=== PATIENT | female | born 1980 ===

== ENCOUNTER 2017-05-30 16:50 | Emergency (ER) | payer MEDICAID, OTHER ==
[2017-05-30] MEDS ORDERED: NS 1,000 ML IV ONE ×2 (17:30→18:02)
[2017-05-30] MEDS ORDERED: ONDANSETRON 4 MG/2 ML VIAL IVP ONE (17:30)
--- NOTE | 2017-05-30 17:30 | EDPHY ---
H & P Stated Complaint: Pt. with fever last noc,n/v/d x2 days.pain to left side Time Seen by Provider: 05/30/17 16:59 HPI/ROS: Chief Complaint: Flank pain, nausea, vomiting HPI: 37-year-old woman's been having left-sided flank pain for the last 7 days. She has had nausea vomiting since yesterday. Some subjective fevers or chills. Several days ago started with some diarrhea which has since resolved. Has not had a bowel movement in several days. Last menstrual period was 3 weeks ago. Does not believe she is . Denies sexual activity. She has never been in the past. No abdominal surgeries. There are no aggravating or alleviating factors. Pain is constant at an 8/10. She took Tylenol p.m. Last night but vomited it immediately. Has had several episodes of vomiting today. No coffee grounds or blood in her vomit. No no dark tarry stools. ROS: 10 point Review of Systems is negative except as noted in the HPI. PMH: Denies Social History: Positive smoking, occasional alcohol, no recreational drug use Family History: non-contributory Physical Exam: Gen: Awake, Alert, No Distress HEENT: Nose: no rhinorrhea Eyes: PERRLA, EOMI Mouth: Moist mucosa Neck: Supple, no JVD Chest: nontender, lungs clear to auscultation Heart: S1, S2 normal, no murmur Abd: Soft, moderate epigastric tenderness with mild left upper quadrant tenderness, no right upper or lower abdominal tenderness, pelvis is nontender, no guarding Back: Moderate left CVA tenderness, no midline tenderness Ext: no edema, non-tender Skin: no rash Neuro: CN II-XII intact, Sensation grossly intact, Strength 5/5 in bilateral upper and lower extremities - Personal History LMP (Females 10-55): 8-14 Days Ago Current Tetanus Diphtheria and Acellular Pertussis (TDAP): Yes - Medical/Surgical History Hx Asthma: No Hx Chronic Respiratory Disease: No Hx Diabetes: No Hx Cardiac Disease: No Hx Renal Disease: No Hx Cirrhosis: No Hx Alcoholism: No Hx HIV/AIDS: No Hx Splenectomy or Spleen Trauma: No Other PMH: Med hx-etoh. Surg-rt ankle - Social History Smoking Status: Light smoker Constitutional: Initial Vital Signs Temperature (C) 37.9 C 05/30/17 16:57 Heart Rate 122 H 05/30/17 16:57 Respiratory Rate 16 05/30/17 16:57 Blood Pressure 118/69 05/30/17 16:57 O2 Sat (%) 95 05/30/17 16:57 O2 Delivery Mode Room Air Allergies/Adverse Reactions: No Known Allergies Allergy (Verified 05/30/17 16:56) Home Medications: Medication Instructions Recorded NK [No Known Home Meds] 05/30/17 Medical Decision Making - Diagnostics Imaging Results: Imaging Impressions Abdomen/Pelvis CT 05/30/17 18:11 Impression: 1. While there is no nephroureterolithiasis or obstructive uropathy, there is relative left nephromegaly with some left perinephric inflammation, suggesting an underlying pyelonephritis. 2. Mild urinary bladder wall thickening, suggestive of a mild cystitis. 3. Grade II spondylolisthesis at L5-S1, with an accompanying spondylolysis. Attention: This CT examination is specifically designed to evaluate patients who are clinically suspected of having acute obstructive uropathy. This examination does not use radiographic contrast, and as such, provides only a limited evaluation of the abdomen, pelvis, and retroperitoneum. If there is further clinical suspicion for pathological conditions other than obstructive uropathy, a complete CT evaluation of the abdomen and pelvis utilizing intravenous, oral, and rectal contrast should be considered. Findings were discussed with Lorenzo Gotti MD at 18:54, on 05/30/2017. He indicated that her urinalysis was positive for white blood cells and hematuria. ED Course/Re-evaluation: 37-year-old woman presenting with left-sided flank pain, tachycardia and fever. IV is been placed. Bloods have been drawn. Urinalysis performed. Patient has an elevated white count at 19. She meets SIRS criteria. Lactic acid and blood cultures have been ordered. I have ordered 2 g of ceftriaxone IV. 1834 patient meets sepsis criteria with a lactic acid 2.5. She is currently getting her 2nd L fluid. Remains tachycardic. Given her hematuria and pain I have ordered a CT scan to rule out infected kidney stone. 1899 CT scan is positive for pyelonephritis but there is no kidney stone. Patient's heart rate is down to 112. She is feeling improved. I have explained to her that she will require admission. She is requesting being transferred to [facility] as she and her mom do not have access to a car and they will be walking when she is discharged in her mother will be walking to visit her. I have paged the hospitalist at [facility]. 192 patient has been accepted to [facility] by Dr. Andrei Oliva. I have completed the EMTALA. - Data Points Laboratory Results: Laboratory Results 05/30/17 17:20 05/30/17 17:20 05/30/17 05/30/17 05/30/17 17:55 17:50 17:20 WBC RBC Hgb Hct MCV MCH MCHC RDW Plt Count MPV Neut % (Auto) Lymph % (Auto) [place] % (Auto) Eos % (Auto) Baso % (Auto) Nucleat RBC Rel Count Absolute Neuts (auto) Absolute Lymphs (auto) Absolute Monos (auto) Absolute Eos (auto) Absolute Basos (auto) Absolute Nucleated RBC Immature Gran % Immature Gran # VBG Lactic Acid 2.4 mmol/L H mmol/L (0.7-2.1) Sodium Potassium Chloride Carbon Dioxide Anion Gap BUN Creatinine Estimated GFR Glucose Calcium Total Bilirubin AST ALT Alkaline Phosphatase Total Protein Albumin Lipase Beta HCG, Qual NEGATIVE Urine Color YELLOW Urine Appearance HAZY Urine pH 6.0 (5.0-7.5) Ur Specific Elizabeth 1.010 (1.002-1.030) Urine Protein 2+ H (NEGATIVE) Urine Ketones 1+ H (NEGATIVE) Urine Blood 3+ H (NEGATIVE) Urine Nitrate POSITIVE H (NEGATIVE) Urine Bilirubin NEGATIVE (NEGATIVE) Urine Urobilinogen 2.0 EU H EU (0.2-1.0) Ur Leukocyte Esterase 1+ H (NEGATIVE) Urine RBC 10-15 /hpf H /hpf (0-3) Urine WBC 25-50 /hpf H /hpf (0-3) Ur Epithelial Cells 1+ /lpf /lpf (NONE-1+) Urine Bacteria 3+ /hpf H /hpf (NONE SEEN) Granular Casts OCCASIONAL /lpf /lpf (0-1) Urine Glucose NEGATIVE (NEGATIVE) 05/30/17 05/30/17 17:20 17:20 WBC 19.46 10^3/uL H 10^3/uL (3.80-9.50) RBC 4.76 10^6/uL 10^6/uL (4.18-5.33) Hgb 14.2 g/dL g/dL (12.6-16.3) Hct 40.8 % % (38.0-47.0) MCV 85.7 fL fL (81.5-99.8) MCH 29.8 pg pg (27.9-34.1) MCHC 34.8 g/dL g/dL (32.4-36.7) RDW 13.6 % % (11.5-15.2) Plt Count 196 10^3/uL 10^3/uL (150-400) MPV 10.4 fL fL (8.7-11.7) Neut % (Auto) 85.2 % H % (39.3-74.2) Lymph % (Auto) 4.2 % L % (15.0-45.0) [place] % (Auto) 9.8 % % (4.5-13.0) Eos % (Auto) 0.0 % L % (0.6-7.6) Baso % (Auto) 0.1 % L % (0.3-1.7) Nucleat RBC Rel Count 0.0 % % (0.0-0.2) Absolute Neuts (auto) 16.59 10^3/uL H 10^3/uL (1.70-6.50) Absolute Lymphs (auto) 0.81 10^3/uL L 10^3/uL (1.00-3.00) Absolute Monos (auto) 1.91 10^3/uL H 10^3/uL (0.30-0.80) Absolute Eos (auto) 0.00 10^3/uL L 10^3/uL (0.03-0.40) Absolute Basos (auto) 0.02 10^3/uL 10^3/uL (0.02-0.10) Absolute Nucleated RBC 0.00 10^3/uL 10^3/uL (0-0.01) Immature Gran % 0.7 % % (0.0-1.1) Immature Gran # 0.13 10^3/uL H 10^3/uL (0.00-0.10) VBG Lactic Acid Sodium 127 mEq/L L mEq/L (135-145) Potassium 4.1 mEq/L mEq/L (3.5-5.2) Chloride 90 mEq/L L mEq/L (97-110) Carbon Dioxide 22 mEq/l mEq/l (22-31) Anion Gap 15 mEq/L mEq/L (8-16) BUN 11 mg/dL mg/dL (7-23) Creatinine 1.1 mg/dL H mg/dL (0.6-1.0) Estimated GFR 57 Glucose 136 mg/dL H mg/dL (70-100) Calcium 8.9 mg/dL mg/dL (8.5-10.4) Total Bilirubin 0.7 mg/dL mg/dL (0.1-1.4) AST 26 IU/L IU/L (14-46) ALT 28 IU/L IU/L (9-52) Alkaline Phosphatase 85 IU/L IU/L (38-126) Total Protein 7.6 g/dL g/dL (6.3-8.2) Albumin 4.0 g/dL g/dL (3.5-5.0) Lipase < 10 IU/L L IU/L (23-300) Beta HCG, Qual Urine Color Urine Appearance Urine pH Ur Specific Elizabeth Urine Protein Urine Ketones Urine Blood Urine Nitrate Urine Bilirubin Urine Urobilinogen Ur Leukocyte Esterase Urine RBC Urine WBC Ur Epithelial Cells Urine Bacteria Granular Casts Urine Glucose Medications Given: Sodium Chloride (Ns) 1,600 mls @ 266.6666 mls/hr 30 ml/kg infuse over 6 hr ( 1600 ml) IV EDNOW ONE PRN Reason: Protocol Stop: 05/31/17 00:35 Last Admin: 05/30/17 19:10 Dose: 1,600 mls Discontinued Medications Sodium Chloride (Ns) 1,000 mls @ 0 mls/hr IV ONCE ONE; Wide Open PRN Reason: Protocol Stop: 05/30/17 17:31 Last Admin: 05/30/17 17:44 Dose: 1,000 mls Sodium Chloride (Ns) 1,000 mls @ 0 mls/hr IV ONCE ONE; Wide Open PRN Reason: Protocol Stop: 05/30/17 18:03 Last Admin: 05/30/17 18:29 Dose: 1,000 mls Ceftriaxone Sodium 2 gm/ (Sterile Water) 20 mls @ 300 mls/hr IV EDNOW ONE PRN Reason: Protocol Stop: 05/30/17 18:26 Last Admin: 05/30/17 19:11 Dose: Not Given Ceftriaxone Sodium 2 gm/ (Sterile Water) 20 mls @ 300 mls/hr IV EDNOW ONE PRN Reason: Protocol Stop: 05/30/17 18:56 Last Admin: 05/30/17 18:50 Dose: 20 mls Ceftriaxone Sodium 2 gm/ (Sterile Water) 20 mls @ 300 mls/hr IV EDNOW ONE PRN Reason: Protocol Stop: 05/30/17 18:59 Last Admin: 05/30/17 19:12 Dose: Not Given Ketorolac Tromethamine (Toradol) 15 mg IVP EDNOW ONE Stop: 05/30/17 18:03 Last Admin: 05/30/17 18:33 Dose: 15 mg Morphine Sulfate (Morphine) 4 mg IVP ONCE ONE Stop: 05/30/17 17:31 Last Admin: 05/30/17 17:51 Dose: Not Given Morphine Sulfate (Morphine) 4 mg IVP EDNOW ONE Stop: 05/30/17 17:42 Last Admin: 05/30/17 17:46 Dose: 4 mg Ondansetron HCl (Zofran) 4 mg IVP EDNOW ONE Stop: 05/30/17 17:31 Last Admin: 05/30/17 17:44 Dose: 4 mg Departure - Departure Referrals: CYNDY,ANNELIESE [Other] - As per Instructions
[2017-05-30 17:40] LABS: PLATELET COUNT 196 10^3/uL (150-400)
[2017-05-30] MEDS ORDERED: KETOROLAC 15 MG/1 ML SDV IVP ONE (18:02)
[2017-05-30] MEDS ORDERED: cefTRIAXone 2 GM in STERILE WATER INJ 20 ML IV ONE ×3 (18:23→18:56)
[2017-05-30] MEDS ORDERED: NS 1,600 ML IV ONE (18:36)
[2017-05-30] MEDS ORDERED: cefTRIAXone 1 GM VIAL ONE (18:39)
[2017-05-30] MEDS ORDERED: ACETAMINOPHEN 500 MG TAB PO ONE (19:20)
[2017-05-30 20:22] VITALS: BP 92/54; PULSE 97; RESP 20; TEMP 99.9; O2SAT 96
== END 2017-05-30 20:22 | disposition short-term general hospital (02) ==
LOC: CED 16:50
DX: A41.9 Sepsis, unspecified organism (principal); N12 Tubulo-interstitial nephritis, not specified as acute or chronic; E86.9 Volume depletion, unspecified; F17.200 Nicotine dependence, unspecified, uncomplicated
CPT/HCPCS: 74176-PO; 80053-PO; 81003-PO; 81015-PO; 83605-PO; 83690-PO; 84703-PO; 85025-PO; 96365; J0696; J1885; J2270; J2405